=== PATIENT | male | born 1975 | race African-American/Black ===

== ENCOUNTER 2017-11-05 12:05 | Observation (INO) ==
[2017-11-05] MEDS ORDERED: KETOROLAC 30 MG/1 ML VIAL IV STA (12:37)
[2017-11-05] MEDS ORDERED: methylPREDNISolone SOD SUC 125 MG/2 ML VIAL IV STA (12:37)
[2017-11-05] MEDS ORDERED: LEVOFLOXACIN INJ 750 MG in PREMIX 1 EACH IV STA (12:39)
[2017-11-05] MEDS ORDERED: ALBUTEROL 2.5 MG/3 ML NEB RESP TX SCH (13:00)
[2017-11-05] MEDS ORDERED: hydrALAZINE 20 MG/1 ML VIAL IV STA (13:17)
[2017-11-05] MEDS ORDERED: LEVOFLOXACIN INJ 150 ML IV ONE (13:18)
[2017-11-05 13:36] LABS: Basophils % 0.3 % (0.0-0.8); Eosinophils # 0.1 10*3/uL (0.0-0.87); Eosinophils % 0.8 % (0.00-10.9); Hematocrit 44.1 VOL% (42.0-52.0); Hemoglobin 15.1 GM/DL (14.0-18.0); Immature Granulocytes % 0.5 %; Immature Granulocytes Absolute 0.05 #; Lymphocytes # 1.8 10*3/uL (1.4-4.0); Lymphocytes % 17.2 % (21.2-54.2); Mean Corpuscular HGB Conc 34.2 GM/DL (32-36); Mean Corpuscular Hemoglobin 32 PG (27-34); Mean Corpuscular Volume 93.4 FL (87-102); Mean Platelet Volume 10.1 FL (9.6-12.0); Monocytes % 9.2 % (1.7-12.7); Neutrophils # 7.5 10*3/uL (1.4-7.4); Platelet Count 185 T/CUMM (130-400); Red Blood Count 4.72 MC/CUMM (3.8-5.5); Red Cell Distribution Width 12.3 % (9.3-17.3); White Blood Count 10.5 T/CUMM (4-12)
[2017-11-05 13:44] LABS: INR 1.1; PT Patient Result 11.1 SECS
[2017-11-05 14:03] LABS: Alanine Aminotransferase 35 U/L (16-61); Albumin 3.8 G/DL (3.4-5.0); Alkaline Phosphatase 110 U/L (45-117); Aspartate Amino Transferase 15 U/L (0-37); Blood Urea Nitrogen 9 MG/DL (7-18); Calcium 8.8 MG/DL (8.5-10.1); Glucose 149 MG/DL (74-106); Osmolality,Calculated 280.4 MOS/KG (273-304); Potassium 3.6 MMOL/L (3.5-5.1); Sodium 140 MMOL/L (136-145); Total Protein 7.2 G/DL (6.4-8.3)
[2017-11-05 14:06] LABS: Troponin I Only 0.126 NG/ML (0.00-0.045)
[2017-11-05] MEDS ORDERED: KETOROLAC 30 MG/1 ML VIAL ONE (14:15)
[2017-11-05] MEDS ORDERED: hydrALAZINE 20 MG/1 ML VIAL ONE (14:15)
[2017-11-05] MEDS ORDERED: methylPREDNISolone SOD SUC 125 MG/2 ML VIAL ONE (14:15)
[2017-11-05] MEDS ORDERED: FUROSEMIDE 40 MG/4 ML VIAL IV STA (14:25)
[2017-11-05] MEDS ORDERED: NITROGLYCERIN 2% OINT 1 INCH/GM PACK TOP STA (14:26)
[2017-11-05] MEDS ORDERED: NITROGLYCERIN 2% OINT 1 INCH/GM PACK TOP ONE (14:30)
[2017-11-05] MEDS ORDERED: FUROSEMIDE 100 MG/10 ML VIAL ONE (14:30)
[2017-11-05] MEDS ORDERED: ACETAMINOPHEN 325 MG TABLET PO PRN (14:51)
[2017-11-05] MEDS ORDERED: GLUCAGON 1 MG VIAL IM PRN (14:51)
[2017-11-05] MEDS ORDERED: DEXTROSE 50% 25 GM/50 ML VIAL IV PRN (14:51)
[2017-11-05] MEDS ORDERED: ONDANSETRON 4 MG/2 ML VIAL IV PRN (14:51)
[2017-11-05] MEDS ORDERED: ASPIRIN 325 MG TABLET PO STA (14:55)
[2017-11-05] MEDS ORDERED: POTASSIUM CHLORIDE 20 MEQ TABLET PO STA (14:56)
[2017-11-05] MEDS ORDERED: ALBUTEROL/IPRATROPIUM 3 ML NEB RESP TX PRN (14:58)
[2017-11-05 15:01] LABS: Apearance,Urine Clear (Clear); Urine Color Dark Yellow (Yellow)
[2017-11-05 15:02] LABS: Bilirubin,Urine Trace mg/dL (Negative); Blood, Urine Negative (Negative); Glucose,Urine (UA) 50 mg/dL (Negative); Ketones,Urine Negative (Negative); Nitrite,Urine Negative (Negative); Protein,Urine 2+ MG/DL; RBC,Urine 0-3 /HPF (0-4)
[2017-11-05 15:03] LABS: WBC,Urine 0-5 /HPF (0-6)
[2017-11-05 15:04] LABS: Barbiturates Screen,Urine Negative (Negative); Benzodiazepines Screen,Urine Negative (Negative); Cannabinoid Screen,Urine Negative (Negative); Opiate Screen,Urine Positive (Negative); Phencyclidine Screen,Urine Negative (Negative)
[2017-11-05] MEDS ORDERED: POTASSIUM CHLORIDE 20 MEQ TABLET PO ONE (15:12)
[2017-11-05] MEDS ORDERED: ASPIRIN 325 MG TABLET ONE (15:13)
[2017-11-05] MEDS ORDERED: SODIUM CHLORIDE 0.9% 500 ML IV STA (15:28)
[2017-11-05] MEDS ORDERED: INFLUENZA VIRUS VACCINE 0.5 ML SYRINGE IM ONE (17:10)
[2017-11-05] MEDS: METOPROLOL TARTRATE 5 MG/5 ML VIAL IV SCH ×2 (17:26→17:27)
[2017-11-05] MEDS: INSULIN REGULAR 100 UNIT/ML SUBCUT SCH ×2 (17:27→20:56)
[2017-11-05] MEDS: NICOTINE 21 MG/24 HR PATCH TRANSDERM SCH (17:48)
[2017-11-05] MEDS: ENOXAPARIN 120 MG/0.8 ML SYRINGE SUBCUT SCH (17:48)
[2017-11-05] MEDS: ALBUTEROL/IPRATROPIUM 3 ML NEB RESP TX SCH (20:36)
[2017-11-05] MEDS: POTASSIUM CHLORIDE 20 MEQ TABLET PO SCH (20:56)
[2017-11-05] MEDS: CARVEDILOL 25 MG TABLET PO SCH (20:56)
[2017-11-05] MEDS ORDERED: FUROSEMIDE 40 MG/4 ML VIAL IV ONE (22:00)
[2017-11-05] MEDS ORDERED: hydrALAZINE 20 MG/1 ML VIAL IV PRN (23:18)
[2017-11-06] MEDS: ALBUTEROL/IPRATROPIUM 3 ML NEB RESP TX SCH ×4 (00:50→18:50)
[2017-11-06] MEDS ORDERED: POTASSIUM CHLORIDE 20 MEQ TABLET PO SCH (02:30)
[2017-11-06] MEDS: ENOXAPARIN 120 MG/0.8 ML SYRINGE SUBCUT SCH ×2 (02:50→15:35)
[2017-11-06] MEDS: POTASSIUM CHLORIDE 20 MEQ TABLET PO SCH (02:50)
[2017-11-06 05:55] LABS: Basophils % 0.1 % (0.0-0.8); Hematocrit 41.7 VOL% (42.0-52.0); Hemoglobin 14.4 GM/DL (14.0-18.0); Immature Granulocytes % 0.6 %; Immature Granulocytes Absolute 0.07 #; Lymphocytes # 1.1 10*3/uL (1.4-4.0); Lymphocytes % 9.8 % (21.2-54.2); Mean Corpuscular HGB Conc 34.5 GM/DL (32-36); Mean Corpuscular Hemoglobin 32 PG (27-34); Mean Corpuscular Volume 92.7 FL (87-102); Mean Platelet Volume 10.7 FL (9.6-12.0); Monocytes # 0.9 10*3/uL (0.11-0.8); Monocytes % 8.5 % (1.7-12.7); Neutrophils # 8.8 10*3/uL (1.4-7.4); Platelet Count 205 T/CUMM (130-400); Red Cell Distribution Width 12.4 % (9.3-17.3); White Blood Count 10.9 T/CUMM (4-12)
[2017-11-06 06:27] LABS: Calcium 8.7 MG/DL (8.5-10.1); Osmolality,Calculated 280.5 MOS/KG (273-304); Potassium 4.1 MMOL/L (3.5-5.1); Risk Ratio 2.89; VLDL CHOLESTEROL 11.2 MG/DL
[2017-11-06] MEDS: ASPIRIN 325 MG TABLET PO SCH (08:35)
[2017-11-06] MEDS: hydroCHLOROthiazide 25 MG TABLET PO SCH (08:35)
[2017-11-06] MEDS: CARVEDILOL 25 MG TABLET PO SCH (08:35)
[2017-11-06] MEDS: OLMESARTAN 20 MG TABLET PO SCH (08:35)
[2017-11-06] MEDS: NICOTINE 21 MG/24 HR PATCH TRANSDERM SCH (08:35)
[2017-11-06] MEDS: INSULIN REGULAR 100 UNIT/ML SUBCUT SCH ×4 (08:37→21:23)
[2017-11-06] MEDS ORDERED: NON-FORMULARY MEDICATION (Empagliflozin [Jardiance] 10 MG) PO SCH (09:00)
[2017-11-06] MEDS ORDERED: FUROSEMIDE 40 MG TABLET PO SCH (09:00)
[2017-11-06] MEDS ORDERED: cloNIDine 0.1 MG TABLET PO PRN (11:07)
[2017-11-06] MEDS: FUROSEMIDE 40 MG/4 ML VIAL IV SCH (15:35)
[2017-11-06] MEDS ORDERED: LABETALOL 200 MG TABLET PO SCH (21:00)
[2017-11-07] MEDS: ALBUTEROL/IPRATROPIUM 3 ML NEB RESP TX SCH ×2 (00:30→07:40)
[2017-11-07] MEDS: ENOXAPARIN 120 MG/0.8 ML SYRINGE SUBCUT SCH (03:36)
[2017-11-07 05:38] LABS: Calcium 8.7 MG/DL (8.5-10.1); Osmolality,Calculated 281.4 MOS/KG (273-304); Potassium 3.4 MMOL/L (3.5-5.1)
[2017-11-07 07:43] VITALS: BP 155/87
[2017-11-07] MEDS: INSULIN REGULAR 100 UNIT/ML SUBCUT SCH (08:44)
[2017-11-07] MEDS: FUROSEMIDE 40 MG/4 ML VIAL IV SCH (08:46)
[2017-11-07] MEDS: OLMESARTAN 20 MG TABLET PO SCH (08:47)
[2017-11-07] MEDS: ASPIRIN 325 MG TABLET PO SCH (08:47)
[2017-11-07] MEDS: hydroCHLOROthiazide 25 MG TABLET PO SCH (08:47)
[2017-11-07] MEDS: NICOTINE 21 MG/24 HR PATCH TRANSDERM SCH (08:49)
[2017-11-07] MEDS ORDERED: METOPROLOL SUCCINATE XL 50 MG TABLET PO SCH (09:00)
== END 2017-11-07 12:59 | disposition home or self-care (01) ==
LOC: N.ED 12:05 → N.EDINP 12:05 → SUATTDRO 14:51 → N.EDINP 17:01 → N.TELES 17:04
PROVIDERS: ADMIT Hospitalist; ATTEND Family Medicine

== ENCOUNTER 2019-01-27 11:51 | Inpatient (IN) ==
[2019-01-27] MEDS ORDERED: SODIUM CHLORIDE 0.9% 1,000 ML IV STA (13:47)
[2019-01-27] MEDS ORDERED: ONDANSETRON 4 MG/2 ML VIAL IV STA (13:47)
[2019-01-27] MEDS ORDERED: DICYCLOMINE 20 MG/2 ML AMP IM ONE (13:47)
[2019-01-27] MEDS ORDERED: METOCLOPRAMIDE 10 MG/2 ML VIAL IV STA (13:50)
[2019-01-27] MEDS ORDERED: hydrALAZINE 20 MG/1 ML VIAL IV STA (13:52)
[2019-01-27 14:48] LABS: Basophils % 0.2 % (0.0-0.8); Eosinophils # 0.1 10*3/uL (0.0-0.87); Eosinophils % 0.7 % (0.00-10.9); Hematocrit 52.4 VOL% (42.0-52.0); Hemoglobin 17.5 GM/DL (14.0-18.0); Immature Granulocytes % 0.3 %; Immature Granulocytes Absolute 0.04 #; Lymphocytes # 2.2 10*3/uL (1.4-4.0); Lymphocytes % 17.3 % (21.2-54.2); Mean Corpuscular HGB Conc 33.4 GM/DL (32-36); Mean Corpuscular Hemoglobin 32 PG (27-34); Mean Corpuscular Volume 94.9 FL (87-102); Mean Platelet Volume 10.1 FL (9.6-12.0); Monocytes # 1.3 10*3/uL (0.11-0.8); Monocytes % 10.4 % (1.7-12.7); Neutrophils # 9.1 10*3/uL (1.4-7.4); Neutrophils % 71.1 % (38.7-73.9); Platelet Count 207 T/CUMM (130-400); Red Blood Count 5.52 MC/CUMM (3.8-5.5); Red Cell Distribution Width 12.4 % (9.3-17.3); White Blood Count 12.8 T/CUMM (4-12)
[2019-01-27 14:57] LABS: PT Patient Result 10.6 SECS; Partial Thromboplastin Time 26.6 SECS (0-40)
[2019-01-27 15:09] LABS: Alanine Aminotransferase 22 U/L (16-61); Albumin 4.1 G/DL (3.4-5.0); Alkaline Phosphatase 110 U/L (45-117); Amylase 43 U/L (25-115); Aspartate Amino Transferase 10 U/L (0-37); Blood Urea Nitrogen 11 MG/DL (7-18); Calcium 8.8 MG/DL (8.5-10.1); Glucose 147 MG/DL (74-106); Potassium 3.3 MMOL/L (3.5-5.1); Sodium 136 MMOL/L (136-145); Total Protein 8.3 G/DL (6.4-8.3); Troponin I 0.026 NG/ML (0.00-0.045)
[2019-01-27] MEDS ORDERED: ALBUTEROL/IPRATROPIUM 3 ML NEB RESP TX PRN (17:21)
[2019-01-27] MEDS ORDERED: ONDANSETRON 4 MG/2 ML VIAL IV PRN (17:26)
[2019-01-27] MEDS ORDERED: SODIUM CHLORIDE 0.9% 1,000 ML IV SCH (17:30)
[2019-01-27] MEDS ORDERED: NICOTINE 14 MG/24 HR PATCH TRANSDERM PRN (17:44)
[2019-01-27] MEDS ORDERED: GLUCAGON 1 MG VIAL IM PRN (17:47)
[2019-01-27] MEDS ORDERED: DEXTROSE 50% 25 GM/50 ML SYRINGE IV PRN (17:47)
[2019-01-27] MEDS ORDERED: cefTRIAXone 1,000 MG in SYRINGE 1 EACH IV SCH (18:00)
[2019-01-27] MEDS ORDERED: MAGNESIUM SULF RIDER 2 GM in PREMIX 1 EACH IV PRN (18:00)
[2019-01-27] MEDS ORDERED: MAGNESIUM SULF RIDER 4 GM in PREMIX 1 EACH IV PRN (18:00)
[2019-01-27] MEDS: INSULIN REGULAR 100 UNIT/ML SUBCUT SCH (18:48)
[2019-01-27] MEDS: hydrALAZINE 20 MG/1 ML VIAL IV PRN (18:52)
[2019-01-27] MEDS: ENOXAPARIN 40 MG/0.4 ML SYRINGE SUBCUT SCH (18:52)
[2019-01-27] MEDS: POTASSIUM CHLORIDE RIDER 10 MEQ in PREMIX 1 EACH IV PRN ×4 (20:06→23:26)
[2019-01-27] MEDS: HYDROmorphone 2 MG/1 ML VIAL IV PRN (20:15)
[2019-01-27 23:10] LABS: Apearance,Urine CLEAR (Clear); Bilirubin,Urine Negative (Negative); Blood, Urine Negative (Negative); Glucose,Urine (UA) >=500 mg/dL (Negative); Ketones,Urine 20 mg/dL (Negative); Nitrite,Urine Negative (Negative); Protein,Urine Negative; Urine Color Yellow (Yellow); Urine Specific Gravity 1.012 (1.001-1.035); Urine Urobilinogen < 2.0 EU/DL (0.2-1.0); WBC,Urine 1 /HPF (0-6)
[2019-01-28] MEDS: POTASSIUM CHLORIDE RIDER 10 MEQ in PREMIX 1 EACH IV PRN (00:41)
[2019-01-28] MEDS: INSULIN REGULAR 100 UNIT/ML SUBCUT SCH ×5 (01:24→20:44)
[2019-01-28 05:14] LABS: Basophils % 0.3 % (0.0-0.8); Eosinophils # 0.1 10*3/uL (0.0-0.87); Eosinophils % 0.5 % (0.00-10.9); Hematocrit 49.8 VOL% (42.0-52.0); Hemoglobin 16.2 GM/DL (14.0-18.0); Immature Granulocytes % 0.3 %; Immature Granulocytes Absolute 0.04 #; Lymphocytes # 1.9 10*3/uL (1.4-4.0); Lymphocytes % 15.8 % (21.2-54.2); Mean Corpuscular HGB Conc 32.5 GM/DL (32-36); Mean Corpuscular Hemoglobin 32 PG (27-34); Mean Corpuscular Volume 97.1 FL (87-102); Mean Platelet Volume 10.1 FL (9.6-12.0); Monocytes # 1.2 10*3/uL (0.11-0.8); Monocytes % 10.4 % (1.7-12.7); Neutrophils # 8.6 10*3/uL (1.4-7.4); Neutrophils % 72.7 % (38.7-73.9); Platelet Count 191 T/CUMM (130-400); Red Blood Count 5.13 MC/CUMM (3.8-5.5); Red Cell Distribution Width 12.5 % (9.3-17.3); White Blood Count 11.9 T/CUMM (4-12)
[2019-01-28 05:28] LABS: Calcium 8.3 MG/DL (8.5-10.1); Osmolality,Calculated 277.5 MOS/KG (273-304); Potassium 3.9 MMOL/L (3.5-5.1); Risk Ratio 2.9; VLDL CHOLESTEROL 16.6 MG/DL
[2019-01-28] MEDS ORDERED: FUROSEMIDE 40 MG/4 ML VIAL IV SCH (08:00)
[2019-01-28] MEDS: METOPROLOL SUCCINATE XL 50 MG TABLET PO SCH (09:29)
[2019-01-28] MEDS ORDERED: DOCUSATE SODIUM 100 MG CAPSULE PO PRN (10:04)
[2019-01-28] MEDS: HYDROmorphone 2 MG/1 ML VIAL IV PRN (16:14)
[2019-01-28] MEDS: ENOXAPARIN 40 MG/0.4 ML SYRINGE SUBCUT SCH (20:44)
[2019-01-29] MEDS: HYDROmorphone 2 MG/1 ML VIAL IV PRN ×2 (01:15→08:48)
[2019-01-29 05:14] LABS: Basophils % 0.4 % (0.0-0.8); Eosinophils # 0.2 10*3/uL (0.0-0.87); Eosinophils % 1.6 % (0.00-10.9); Hematocrit 46.6 VOL% (42.0-52.0); Hemoglobin 15.1 GM/DL (14.0-18.0); Immature Granulocytes % 0.4 %; Immature Granulocytes Absolute 0.04 #; Lymphocytes % 19.5 % (21.2-54.2); Mean Corpuscular HGB Conc 32.4 GM/DL (32-36); Mean Corpuscular Hemoglobin 31 PG (27-34); Mean Corpuscular Volume 96.9 FL (87-102); Mean Platelet Volume 10.1 FL (9.6-12.0); Monocytes # 1.4 10*3/uL (0.11-0.8); Monocytes % 14.1 % (1.7-12.7); Neutrophils # 6.5 10*3/uL (1.4-7.4); Platelet Count 174 T/CUMM (130-400); Red Blood Count 4.81 MC/CUMM (3.8-5.5); Red Cell Distribution Width 12.4 % (9.3-17.3); White Blood Count 10.1 T/CUMM (4-12)
[2019-01-29] MEDS: hydrALAZINE 20 MG/1 ML VIAL IV PRN ×2 (05:16→11:40)
[2019-01-29 05:28] LABS: Albumin 3.3 G/DL (3.4-5.0); Bilirubin,Total 1.2 MG/DL (0.2-1.0); Calcium 8.2 MG/DL (8.5-10.1); Osmolality,Calculated 279.4 MOS/KG (273-304); Potassium 3.9 MMOL/L (3.5-5.1); Total Protein 6.8 G/DL (6.4-8.3)
[2019-01-29] MEDS: INSULIN REGULAR 100 UNIT/ML SUBCUT SCH ×2 (07:11→11:45)
[2019-01-29] MEDS: METOPROLOL SUCCINATE XL 50 MG TABLET PO SCH (08:38)
[2019-01-29] MEDS ORDERED: OLMESARTAN 20 MG TABLET PO SCH (09:00)
[2019-01-29 12:18] VITALS: BP 159/104
== END 2019-01-29 12:45 | disposition home or self-care (01) | DRG 439 ==
LOC: N.ED 11:51 → SUATTDRO 17:26 → N.EDINP 17:26 → N.2E 17:45
PROVIDERS: ADMIT Internal Medicine; ATTEND Internal Medicine

== ENCOUNTER 2019-04-21 13:07 | Inpatient (IN) ==
[2019-04-21] MEDS ORDERED: FAMOTIDINE 20 MG/2 ML VIAL IV STA (14:52)
[2019-04-21] MEDS ORDERED: METOCLOPRAMIDE 10 MG/2 ML VIAL IV STA (14:52)
[2019-04-21] MEDS ORDERED: ALBUTEROL/IPRATROPIUM 3 ML NEB RESP TX STA (14:52)
[2019-04-21] MEDS ORDERED: hydrALAZINE 20 MG/1 ML VIAL IV STA (14:56)
[2019-04-21 15:06] LABS: Basophils % 0.2 % (0.0-0.8); Eosinophils # 0.1 10*3/uL (0.0-0.87); Eosinophils % 1.1 % (0.00-10.9); Hematocrit 46.1 VOL% (42.0-52.0); Hemoglobin 15.2 GM/DL (14.0-18.0); Immature Granulocytes % 0.4 %; Immature Granulocytes Absolute 0.04 #; Lymphocytes # 1.8 10*3/uL (1.4-4.0); Lymphocytes % 16.1 % (21.2-54.2); Mean Corpuscular Volume 97.9 FL (87-102); Mean Platelet Volume 10.4 FL (9.6-12.0); Monocytes % 8.9 % (1.7-12.7); Neutrophils % 73.3 % (38.7-73.9); Platelet Count 181 T/CUMM (130-400); Red Blood Count 4.71 MC/CUMM (3.8-5.5); Red Cell Distribution Width 12.5 % (9.3-17.3); White Blood Count 11.1 T/CUMM (4-12)
[2019-04-21 15:28] LABS: Albumin 3.9 G/DL (3.4-5.0); Bilirubin,Total 1.9 MG/DL (0.2-1.0); Calcium 9.1 MG/DL (8.5-10.1); Osmolality,Calculated 280.3 MOS/KG (273-304); Total Protein 7.1 G/DL (6.4-8.3)
[2019-04-21 15:29] LABS: Troponin I 0.058 NG/ML (0.00-0.045)
[2019-04-21] MEDS ORDERED: FUROSEMIDE 40 MG/4 ML VIAL IV STA (15:45)
[2019-04-21 16:00] LABS: Apearance,Urine CLEAR (Clear); Bilirubin,Urine Negative (Negative); Blood, Urine Negative (Negative); Glucose,Urine (UA) Negative (Negative); Ketones,Urine Negative (Negative); Mucus,Urine Occasional /LPF (Occasional); Nitrite,Urine Negative (Negative); Protein,Urine 30 MG/DL; RBC,Urine 2 /HPF (0-4); Squamous Epithelial Cell,Urine Occasional /HPF (0-10); Urine Color Yellow (Yellow); Urine Specific Gravity 1.024 (1.001-1.035); WBC,Urine 2 /HPF (0-6)
[2019-04-21] MEDS ORDERED: ONDANSETRON 4 MG/2 ML VIAL IV PRN (16:42)
[2019-04-21] MEDS ORDERED: ALBUTEROL 2.5 MG/3 ML NEB RESP TX PRN (16:42)
[2019-04-21] MEDS ORDERED: NICOTINE 21 MG/24 HR PATCH TRANSDERM PRN (16:42)
[2019-04-21] MEDS ORDERED: GLUCAGON 1 MG VIAL IM PRN (16:55)
[2019-04-21] MEDS ORDERED: DEXTROSE 50% 25 GM/50 ML VIAL IV PRN (16:55)
[2019-04-21] MEDS: ENOXAPARIN 40 MG/0.4 ML SYRINGE SUBCUT SCH (18:36)
[2019-04-21 18:38] LABS: Troponin I 0.041 NG/ML (0.00-0.045)
[2019-04-21] MEDS: FAMOTIDINE 20 MG/2 ML VIAL IV SCH (18:38)
[2019-04-21] MEDS ORDERED: niCARdipine INJ 25 MG in SODIUM CHLORIDE 0.9% 240 ML IV PRN (19:07)
[2019-04-21 20:33] LABS: Barbiturates Screen,Urine Negative (Negative); Benzodiazepines Screen,Urine Negative (Negative); Cannabinoid Screen,Urine Negative (Negative); Opiate Screen,Urine Negative (Negative); Phencyclidine Screen,Urine Negative (Negative)
[2019-04-21] MEDS ORDERED: FUROSEMIDE 40 MG TABLET PO SCH (21:00)
[2019-04-21] MEDS: CARVEDILOL 25 MG TABLET PO SCH (21:55)
[2019-04-21] MEDS: INSULIN LISPRO 100 UNIT/ML SUBCUT SCH (21:57)
[2019-04-22 00:39] LABS: Troponin I 0.045 NG/ML (0.00-0.045)
[2019-04-22 04:56] LABS: Basophils % 0.4 % (0.0-0.8); Eosinophils # 0.1 10*3/uL (0.0-0.87); Eosinophils % 0.9 % (0.00-10.9); Hematocrit 45.4 VOL% (42.0-52.0); Hemoglobin 14.6 GM/DL (14.0-18.0); Immature Granulocytes % 0.4 %; Immature Granulocytes Absolute 0.04 #; Lymphocytes # 1.4 10*3/uL (1.4-4.0); Lymphocytes % 13.3 % (21.2-54.2); Mean Corpuscular HGB Conc 32.2 GM/DL (32-36); Mean Corpuscular Volume 99.3 FL (87-102); Mean Platelet Volume 10.4 FL (9.6-12.0); Platelet Count 169 T/CUMM (130-400); Red Blood Count 4.57 MC/CUMM (3.8-5.5); Red Cell Distribution Width 12.4 % (9.3-17.3); White Blood Count 10.2 T/CUMM (4-12)
[2019-04-22 05:14] LABS: Calcium 8.9 MG/DL (8.5-10.1); Osmolality,Calculated 280.3 MOS/KG (273-304)
[2019-04-22] MEDS: FAMOTIDINE 20 MG/2 ML VIAL IV SCH ×2 (06:44→16:40)
[2019-04-22] MEDS: INSULIN LISPRO 100 UNIT/ML SUBCUT SCH ×4 (08:56→21:25)
[2019-04-22] MEDS ORDERED: METOPROLOL SUCCINATE XL 50 MG TABLET PO SCH (09:00)
[2019-04-22] MEDS ORDERED: SIMVASTATIN 10 MG TABLET PO SCH (09:00)
[2019-04-22] MEDS: FUROSEMIDE 40 MG/4 ML VIAL IV SCH ×2 (09:05→16:39)
[2019-04-22] MEDS: LISINOPRIL 20 MG TABLET PO SCH (09:08)
[2019-04-22] MEDS: CARVEDILOL 25 MG TABLET PO SCH ×2 (09:08→21:25)
[2019-04-22] MEDS: PANTOPRAZOLE 40 MG TABLET PO SCH (09:09)
[2019-04-22] MEDS: cloNIDine 0.1 MG TABLET PO SCH ×2 (09:09→21:25)
[2019-04-22] MEDS: POTASSIUM CHLORIDE 20 MEQ TABLET PO SCH (09:09)
[2019-04-22] MEDS: ENOXAPARIN 40 MG/0.4 ML SYRINGE SUBCUT SCH (16:56)
[2019-04-23] MEDS: FAMOTIDINE 20 MG/2 ML VIAL IV SCH ×2 (05:27→21:03)
[2019-04-23 06:22] LABS: Basophils % 0.4 % (0.0-0.8); Eosinophils # 0.2 10*3/uL (0.0-0.87); Eosinophils % 1.8 % (0.00-10.9); Hematocrit 44.3 VOL% (42.0-52.0); Hemoglobin 13.9 GM/DL (14.0-18.0); Immature Granulocytes % 0.4 %; Immature Granulocytes Absolute 0.04 #; Lymphocytes # 1.7 10*3/uL (1.4-4.0); Lymphocytes % 18.4 % (21.2-54.2); Mean Corpuscular HGB Conc 31.4 GM/DL (32-36); Mean Corpuscular Volume 100.7 FL (87-102); Mean Platelet Volume 10.5 FL (9.6-12.0); Monocytes % 11.4 % (1.7-12.7); Neutrophils % 67.6 % (38.7-73.9); Platelet Count 161 T/CUMM (130-400); Red Cell Distribution Width 12.4 % (9.3-17.3); White Blood Count 9.2 T/CUMM (4-12)
[2019-04-23 06:39] LABS: Calcium 8.8 MG/DL (8.5-10.1)
[2019-04-23] MEDS: INSULIN LISPRO 100 UNIT/ML SUBCUT SCH ×4 (08:19→21:13)
[2019-04-23] MEDS: POTASSIUM CHLORIDE 20 MEQ TABLET PO SCH (08:41)
[2019-04-23] MEDS: PANTOPRAZOLE 40 MG TABLET PO SCH (08:41)
[2019-04-23] MEDS: cloNIDine 0.1 MG TABLET PO SCH ×2 (08:41→21:03)
[2019-04-23] MEDS: FUROSEMIDE 40 MG/4 ML VIAL IV SCH ×2 (08:41→15:46)
[2019-04-23] MEDS: CARVEDILOL 25 MG TABLET PO SCH ×2 (08:41→21:03)
[2019-04-23] MEDS: LISINOPRIL 20 MG TABLET PO SCH (08:41)
[2019-04-23] MEDS: SIMVASTATIN 10 MG TABLET PO SCH (21:03)
[2019-04-23] MEDS: ENOXAPARIN 40 MG/0.4 ML SYRINGE SUBCUT SCH (21:04)
[2019-04-24 04:43] LABS: Basophils % 0.3 % (0.0-0.8); Eosinophils # 0.3 10*3/uL (0.0-0.87); Eosinophils % 2.7 % (0.00-10.9); Hematocrit 42.2 VOL% (42.0-52.0); Hemoglobin 13.9 GM/DL (14.0-18.0); Immature Granulocytes % 0.4 %; Immature Granulocytes Absolute 0.04 #; Lymphocytes # 2.1 10*3/uL (1.4-4.0); Lymphocytes % 21.4 % (21.2-54.2); Mean Corpuscular HGB Conc 32.9 GM/DL (32-36); Mean Corpuscular Volume 97.7 FL (87-102); Mean Platelet Volume 10.7 FL (9.6-12.0); Monocytes % 13.1 % (1.7-12.7); Neutrophils % 62.1 % (38.7-73.9); Platelet Count 168 T/CUMM (130-400); Red Blood Count 4.32 MC/CUMM (3.8-5.5); Red Cell Distribution Width 12.2 % (9.3-17.3); White Blood Count 9.6 T/CUMM (4-12)
[2019-04-24 04:48] LABS: Calcium 8.8 MG/DL (8.5-10.1); Osmolality,Calculated 282.1 MOS/KG (273-304)
[2019-04-24] MEDS ORDERED: LACTATED RINGERS 1,000 ML IV SCH (08:00)
[2019-04-24] MEDS: FUROSEMIDE 40 MG/4 ML VIAL IV SCH ×3 (08:35→16:42)
[2019-04-24] MEDS ORDERED: LOSARTAN 25 MG TABLET PO SCH (09:00)
[2019-04-24] MEDS ORDERED: PROPOFOL 200 MG/20 ML VIAL IV ONE (09:00)
[2019-04-24] MEDS ORDERED: LIDOCAINE 2% 5 ML VIAL ONE (09:00)
[2019-04-24] MEDS: FAMOTIDINE 20 MG/2 ML VIAL IV SCH ×2 (10:16→21:03)
[2019-04-24] MEDS: cloNIDine 0.1 MG TABLET PO SCH ×2 (10:17→21:03)
[2019-04-24] MEDS: CARVEDILOL 25 MG TABLET PO SCH ×2 (10:17→21:03)
[2019-04-24] MEDS: POTASSIUM CHLORIDE 20 MEQ TABLET PO SCH (10:17)
[2019-04-24] MEDS: PANTOPRAZOLE 40 MG TABLET PO SCH (10:17)
[2019-04-24] MEDS: INSULIN LISPRO 100 UNIT/ML SUBCUT SCH ×4 (10:18→21:02)
[2019-04-24] MEDS: SIMVASTATIN 10 MG TABLET PO SCH (21:03)
[2019-04-24] MEDS: ENOXAPARIN 40 MG/0.4 ML SYRINGE SUBCUT SCH (21:03)
[2019-04-25 05:37] LABS: Basophils % 0.3 % (0.0-0.8); Eosinophils # 0.2 10*3/uL (0.0-0.87); Eosinophils % 2.6 % (0.00-10.9); Hematocrit 43.2 VOL% (42.0-52.0); Hemoglobin 14.1 GM/DL (14.0-18.0); Immature Granulocytes % 0.3 %; Immature Granulocytes Absolute 0.03 #; Mean Corpuscular HGB Conc 32.6 GM/DL (32-36); Mean Corpuscular Volume 97.5 FL (87-102); Mean Platelet Volume 10.5 FL (9.6-12.0); Monocytes % 13.1 % (1.7-12.7); Neutrophils % 60.7 % (38.7-73.9); Platelet Count 159 T/CUMM (130-400); Red Blood Count 4.43 MC/CUMM (3.8-5.5); Red Cell Distribution Width 12.1 % (9.3-17.3); White Blood Count 8.7 T/CUMM (4-12)
[2019-04-25 06:04] LABS: Calcium 8.7 MG/DL (8.5-10.1); Osmolality,Calculated 281.3 MOS/KG (273-304)
[2019-04-25] MEDS: FUROSEMIDE 40 MG/4 ML VIAL IV SCH ×2 (10:23→18:07)
[2019-04-25] MEDS: LOSARTAN 50 MG TABLET PO SCH (10:23)
[2019-04-25] MEDS: POTASSIUM CHLORIDE 20 MEQ TABLET PO SCH (10:24)
[2019-04-25] MEDS: PANTOPRAZOLE 40 MG TABLET PO SCH (10:24)
[2019-04-25] MEDS: cloNIDine 0.1 MG TABLET PO SCH (10:24)
[2019-04-25] MEDS: CARVEDILOL 25 MG TABLET PO SCH ×2 (10:24→20:55)
[2019-04-25] MEDS: FAMOTIDINE 20 MG/2 ML VIAL IV SCH ×2 (10:25→20:55)
[2019-04-25] MEDS: INSULIN LISPRO 100 UNIT/ML SUBCUT SCH ×4 (10:26→20:55)
[2019-04-25] MEDS: SIMVASTATIN 10 MG TABLET PO SCH (20:55)
[2019-04-25] MEDS: ENOXAPARIN 40 MG/0.4 ML SYRINGE SUBCUT SCH (20:55)
[2019-04-26 04:40] LABS: Basophils % 0.4 % (0.0-0.8); Eosinophils # 0.2 10*3/uL (0.0-0.87); Eosinophils % 2.6 % (0.00-10.9); Hematocrit 46.5 VOL% (42.0-52.0); Hemoglobin 15.4 GM/DL (14.0-18.0); Immature Granulocytes % 0.4 %; Immature Granulocytes Absolute 0.04 #; Mean Corpuscular HGB Conc 33.1 GM/DL (32-36); Mean Corpuscular Volume 96.3 FL (87-102); Mean Platelet Volume 10.5 FL (9.6-12.0); Monocytes % 13.4 % (1.7-12.7); Neutrophils % 61.2 % (38.7-73.9); Platelet Count 170 T/CUMM (130-400); Red Blood Count 4.83 MC/CUMM (3.8-5.5); Red Cell Distribution Width 12.1 % (9.3-17.3); White Blood Count 8.9 T/CUMM (4-12)
[2019-04-26 05:00] LABS: Calcium 9.1 MG/DL (8.5-10.1); Osmolality,Calculated 280.3 MOS/KG (273-304)
[2019-04-26] MEDS: INSULIN LISPRO 100 UNIT/ML SUBCUT SCH ×4 (08:49→20:44)
[2019-04-26] MEDS: POTASSIUM CHLORIDE 20 MEQ TABLET PO SCH (09:34)
[2019-04-26] MEDS: LOSARTAN 50 MG TABLET PO SCH (09:34)
[2019-04-26] MEDS: PANTOPRAZOLE 40 MG TABLET PO SCH (09:34)
[2019-04-26] MEDS: CARVEDILOL 25 MG TABLET PO SCH ×2 (09:34→20:43)
[2019-04-26] MEDS: FUROSEMIDE 40 MG TABLET PO SCH (09:34)
[2019-04-26] MEDS: FAMOTIDINE 20 MG/2 ML VIAL IV SCH (09:34)
[2019-04-26] MEDS: cloNIDine 0.1 MG TABLET PO SCH (10:18)
[2019-04-26] MEDS: SIMVASTATIN 10 MG TABLET PO SCH (20:43)
[2019-04-26] MEDS: ENOXAPARIN 40 MG/0.4 ML SYRINGE SUBCUT SCH (20:46)
[2019-04-27 06:38] LABS: Osmolality,Calculated 283.1 MOS/KG (273-304)
[2019-04-27] MEDS: INSULIN LISPRO 100 UNIT/ML SUBCUT SCH ×2 (07:37→11:46)
[2019-04-27] MEDS ORDERED: SACUBITRIL/VALSARTAN 49-51 MG TABLET PO SCH (09:00)
[2019-04-27] MEDS: CARVEDILOL 25 MG TABLET PO SCH (09:28)
[2019-04-27] MEDS: PANTOPRAZOLE 40 MG TABLET PO SCH (09:28)
[2019-04-27] MEDS: FUROSEMIDE 40 MG TABLET PO SCH (09:29)
[2019-04-27] MEDS: POTASSIUM CHLORIDE 20 MEQ TABLET PO SCH (09:29)
[2019-04-27 12:15] VITALS: BP 127/99
== END 2019-04-27 13:05 | disposition home or self-care (01) | DRG 292 ==
LOC: N.ED 13:07 → SUATTDRO 16:43 → N.EDINP 16:43 → N.ICU 17:15 → N.2E 04-22 18:00
PROVIDERS: ADMIT Internal Medicine Geriatric Medicine; ATTEND Internal Medicine

== ENCOUNTER 2019-09-04 10:50 | Observation (INO) ==
[2019-09-04] MEDS ORDERED: FUROSEMIDE 100 MG/10 ML VIAL IV STA (11:11)
[2019-09-04 11:33] LABS: Basophils % 0.2 % (0.0-0.8); Eosinophils # 0.1 10*3/uL (0.0-0.87); Eosinophils % 1.4 % (0.00-10.9); Hematocrit 43.3 VOL% (42.0-52.0); Hemoglobin 14.5 GM/DL (14.0-18.0); Immature Granulocytes % 0.3 %; Immature Granulocytes Absolute 0.03 #; Lymphocytes # 1.6 10*3/uL (1.4-4.0); Lymphocytes % 15.7 % (21.2-54.2); Mean Corpuscular HGB Conc 33.5 GM/DL (32-36); Mean Corpuscular Volume 98.2 FL (87-102); Mean Platelet Volume 9.8 FL (9.6-12.0); Monocytes % 8.6 % (1.7-12.7); Neutrophils % 73.8 % (38.7-73.9); Platelet Count 159 T/CUMM (130-400); Red Blood Count 4.41 MC/CUMM (3.8-5.5); Red Cell Distribution Width 12.6 % (9.3-17.3); White Blood Count 10.1 T/CUMM (4-12)
[2019-09-04 11:41] LABS: PT Patient Result 10.8 SECS (9.6-12.2)
[2019-09-04 11:44] LABS: Apearance,Urine CLEAR (Clear); Bilirubin,Urine Negative (Negative); Blood, Urine Negative (Negative); Glucose,Urine (UA) >=500 mg/dL (Negative); Ketones,Urine Negative (Negative); Nitrite,Urine Negative (Negative); Protein,Urine 100 MG/DL; RBC,Urine 2 /HPF (0-4); Urine Color Yellow (Yellow); Urine Specific Gravity 1.015 (1.001-1.035); WBC,Urine 1 /HPF (0-6)
[2019-09-04 11:52] LABS: Albumin 3.7 G/DL (3.4-5.0); Bilirubin,Total 1.4 MG/DL (0.2-1.0); Calcium 8.7 MG/DL (8.5-10.1); Osmolality,Calculated 285.4 MOS/KG (273-304); Total Protein 6.7 G/DL (6.4-8.3)
[2019-09-04] MEDS ORDERED: niCARdipine INJ 25 MG in SODIUM CHLORIDE 0.9% 240 ML IV PRN (12:14)
[2019-09-04] MEDS ORDERED: niCARdipine 25 MG/10 ML VIAL IV ONE (12:19)
[2019-09-04] MEDS ORDERED: ONDANSETRON 4 MG/2 ML VIAL IV PRN (13:27)
[2019-09-04] MEDS ORDERED: DOCUSATE SODIUM 100 MG CAPSULE PO PRN (13:27)
[2019-09-04] MEDS ORDERED: ACETAMINOPHEN 325 MG TABLET PO PRN (13:27)
[2019-09-04 14:22] LABS: Risk Ratio 2.64; Thyroid Stimulating Hormone 0.542 uIU/ml (0.358-3.74); VLDL CHOLESTEROL 13.4 MG/DL
[2019-09-04] MEDS ORDERED: cefTRIAXone 1,000 MG in SYRINGE 1 EACH IV SCH (15:00)
[2019-09-04] MEDS ORDERED: GLUCAGON 1 MG VIAL IM PRN (15:01)
[2019-09-04] MEDS ORDERED: DEXTROSE 50% 25 GM/50 ML VIAL IV PRN (15:01)
[2019-09-04] MEDS ORDERED: AZITHROMYCIN INJ 500 MG in SODIUM CHLORIDE 0.9% 250 ML IV SCH (16:00)
[2019-09-04] MEDS ORDERED: FUROSEMIDE 40 MG/4 ML VIAL IV SCH ×2 (16:14→19:00)
[2019-09-04] MEDS: INSULIN LISPRO 100 UNIT/ML SUBCUT SCH ×2 (16:35→22:53)
[2019-09-04] MEDS ORDERED: carvediloL 25 MG TABLET PO ONE (16:40)
[2019-09-04] MEDS ORDERED: SACUBITRIL/VALSARTAN 49-51 MG TABLET PO ONE (16:40)
[2019-09-04] MEDS ORDERED: ENOXAPARIN 40 MG/0.4 ML SYRINGE SUBCUT SCH (21:00)
[2019-09-04] MEDS ORDERED: SACUBITRIL/VALSARTAN 49-51 MG TABLET PO SCH (21:00)
[2019-09-04] MEDS ORDERED: carvediloL 25 MG TABLET PO SCH (21:00)
[2019-09-05 05:32] LABS: Basophils % 0.2 % (0.0-0.8); Eosinophils # 0.2 10*3/uL (0.0-0.87); Eosinophils % 1.9 % (0.00-10.9); Hematocrit 44.2 VOL% (42.0-52.0); Hemoglobin 14.7 GM/DL (14.0-18.0); Immature Granulocytes % 0.3 %; Immature Granulocytes Absolute 0.03 #; Lymphocytes # 1.6 10*3/uL (1.4-4.0); Lymphocytes % 18.2 % (21.2-54.2); Mean Corpuscular HGB Conc 33.3 GM/DL (32-36); Mean Corpuscular Volume 99.8 FL (87-102); Mean Platelet Volume 10.4 FL (9.6-12.0); Monocytes % 11.2 % (1.7-12.7); Neutrophils % 68.2 % (38.7-73.9); Platelet Count 162 T/CUMM (130-400); Red Blood Count 4.43 MC/CUMM (3.8-5.5); Red Cell Distribution Width 12.5 % (9.3-17.3)
[2019-09-05 05:45] LABS: Calcium 8.5 MG/DL (8.5-10.1); Osmolality,Calculated 280.5 MOS/KG (273-304)
[2019-09-05] MEDS: INSULIN LISPRO 100 UNIT/ML SUBCUT SCH ×2 (09:00→11:25)
[2019-09-05] MEDS ORDERED: PANTOPRAZOLE 40 MG TABLET PO SCH (09:00)
[2019-09-05] MEDS: POTASSIUM CHLORIDE 20 MEQ TABLET PO PRN ×2 (11:14→13:09)
[2019-09-05 11:30] VITALS: BP 142/87
== END 2019-09-05 16:00 | disposition home or self-care (01) ==
LOC: N.EDINP 10:50 → N.ED 10:50 → N.TELEN 14:00
PROVIDERS: ADMIT Family Medicine; ATTEND Family Medicine